=== PATIENT | male | born 1935 | race Caucasian/White ===

== ENCOUNTER 2018-11-15 17:15 | Inpatient (IN) | payer MEDICARE, BC ==
[2018-11-15] MEDS ORDERED: Furosemide 40 MG TAB PO PRN (19:45)
[2018-11-15] MEDS ORDERED: Dextrose 50% Abboject 50 ML SYRINGE SLOW IVP PRN (19:48)
[2018-11-15] MEDS ORDERED: Dextrose 5% in Water 1,000 ML IV PRN (19:48)
[2018-11-15] MEDS: Lantus 1000 UNITS/10 ML VIAL SC SCH (21:05)
[2018-11-15] MEDS: Sucralfate 1 GM TAB PO SCH (21:06)
[2018-11-15] MEDS: Carvedilol 6.25 MG TAB PO SCH (21:06)
[2018-11-15] MEDS ORDERED: Zolpidem Tartrate 5 MG TAB PO SCH (22:45)
[2018-11-15] MEDS: HumaLOG 300 UNITS/3 ML VIAL SC PRN (22:47)
[2018-11-16 05:10] LABS: #Basophils 0.1 thou/uL (0.0-0.2); #Eosinphils 0.4 thou/uL (0.0-0.7); #Lymphocytes 1.4 thou/uL (1.20-3.40); #Monocytes 1.3 thou/uL (0.11-0.59); #Neutrophils 6.6 thou/uL (1.40-6.50); %Basophils 0.7 % (0.0-1.0); %Eosinophils 4.2 % (0.0-10.0); %Lymphocytes 14.5 % (21.0-51.0); %Monocytes 12.9 % (0.0-10.0); %Neutrophils 67.7 % (42.0-75.0); Hemoglobin 10.2 g/dL (14.0-18.0); Mean Corpuscular HGB CONC 30.7 g/dL (32.0-36.0); Mean Corpuscular Volume 84.5 fL (78.0-98.0); Platelet Count 313 thou/uL (130-400); RBC Distribution Width 13.6 % (11.5-14.5); Red Blood Cell (RBC) Count 3.92 mill/uL (4.70-6.10); White Blood Cell (WBC) Count 9.7 thou/uL (4.8-10.8)
[2018-11-16 05:29] LABS: ALT (SGPT) 84 U/L (8-55); AST (SGOT) 50 U/L (5-34); Albumin 3.2 g/dL (3.4-4.8); Alkaline Phosphatase 68 U/L (40-150); Anion Gap 11 mmol/L (10-20); BUN (Urea Nitrogen) 16 mg/dL (8.4-25.7); Bilirubin, Total 1.3 mg/dL (0.2-1.2); Calc. Creatinine Clearance 64 mL/min (70-130); Calcium 9.4 mg/dL (7.8-10.44); Carbon Dioxide 29 mmol/L (23-31); Chloride 92 mmol/L (98-107); Estimated GFR-MDRD 54; Globulin 2.7 g/dL (2.4-3.5); Glucose 154 mg/dL (83-110); Potassium 4.1 mmol/L (3.5-5.1); Protein, Total 5.9 g/dL (5.8-8.1); Sodium 128 mmol/L (136-145)
[2018-11-16] MEDS: Loratadine 10 MG TAB PO SCH (08:57)
[2018-11-16] MEDS: Rivaroxaban 10 MG TAB PO SCH (08:57)
[2018-11-16] MEDS: Polyethylene Glycol 3350 17 GM Packet PO SCH (08:57)
--- NOTE | 2018-11-16 08:57 | RAD ---
FExam: Chest one view HISTORY:CHF, cardiac tamponade not Comparison: 10/08/17 FINDINGS: Lungs: Pleural-based density at each inferior chest, right greater than left Cardiac silhouette:Mildly enlarged Pulmonary vessels: Normal Pleural Spaces: Small bilateral pleural effusions right greater than left Pneumothorax: None Osseous abnormalities: None IMPRESSION: Bilateral pleural effusion, right greater than left, mild in volume. Enlarged cardiac silhouette correlative to to provided history of CHF.
[2018-11-16] MEDS: Fenofibrate Nanocrystallized 145 MG TAB PO SCH (08:58)
[2018-11-16] MEDS: Atorvastatin Calcium 10 MG TAB PO SCH (08:58)
[2018-11-16] MEDS: Tamsulosin HCl 0.4 MG CAP PO SCH (08:58)
[2018-11-16] MEDS: Potassium Chloride 20 MEQ TAB PO SCH (08:58)
[2018-11-16] MEDS: Furosemide 20 MG TAB PO SCH (08:58)
[2018-11-16] MEDS: Carvedilol 6.25 MG TAB PO SCH ×2 (08:59→21:17)
[2018-11-16] MEDS: Sucralfate 1 GM TAB PO SCH ×4 (08:59→21:17)
[2018-11-16] MEDS: Aspirin Chewable 81 MG TAB PO SCH (08:59)
[2018-11-16] MEDS: Alogliptin 25 MG TAB PO SCH (08:59)
[2018-11-16] MEDS: Saccharomyces boulardii 250 MG CAP PO SCH (08:59)
[2018-11-16] MEDS: HumaLOG 300 UNITS/3 ML VIAL SC PRN ×3 (12:20→21:20)
[2018-11-16] MEDS ORDERED: Zolpidem Tartrate 5 MG TAB PO SCH (21:00)
[2018-11-16] MEDS: Zolpidem Tartrate 5 MG TAB PO SCH (21:17)
[2018-11-16] MEDS: Lantus 1000 UNITS/10 ML VIAL SC SCH (21:17)
[2018-11-17] MEDS: HumaLOG 300 UNITS/3 ML VIAL SC PRN ×4 (06:14→20:59)
--- NOTE | 2018-11-17 07:43 | PRG ---
DATE OF SERVICE: 11/16/2018 SUBJECTIVE: The patient has no complaints this morning and is ready to do therapy. He is eating well. No nausea, vomiting, shortness of breath, or chest pain. VITAL SIGNS: Temperature is 98, pulse 84, respirations 18, O2 sats 97% on room air, blood pressure 134/61. LABORATORY: White count 9700, hematocrit 33, hemoglobin 10. Sodium is up to 128 from admission, sodium 125, potassium 4.1, chloride 92, bicarb 29, BUN 16, creatinine 1.27. Accu-Cheks ranged from 253 to 266. Total bilirubin 1.3, AST 50, ALT 84, albumin 3.2, alkaline phosphatase 68, total protein 5.9. PHYSICAL EXAMINATION: LUNGS: Clear. CARDIAC: Regular rhythm. ABDOMEN: Soft and nontender. SKIN AND EXTREMITIES: No edema, clubbing, or cyanosis. ASSESSMENT: 1. Improving deconditioning status post recent admission for a cardiac tamponade, resolved with pericardial window. 2. Atrial fibrillation/flutter, status post ablation with no evidence for recurrence. 3. Diastolic heart failure, slowly improving with increasing exercise tolerance. 4. Type 2 diabetes with inadequate control, at this time on prehospitalization medicines and mild sliding scale. We will discuss increased dose of long-acting insulin with the patient. 5. History of elevated liver function studies, most likely due to congestive heart failure, improving with diuresis. We will continue to monitor. Job ID: [id number]
[2018-11-17] MEDS: Tamsulosin HCl 0.4 MG CAP PO SCH (08:38)
[2018-11-17] MEDS: Rivaroxaban 10 MG TAB PO SCH (08:39)
[2018-11-17] MEDS: Aspirin Chewable 81 MG TAB PO SCH (08:39)
[2018-11-17] MEDS: Potassium Chloride 20 MEQ TAB PO SCH (08:40)
[2018-11-17] MEDS: Sucralfate 1 GM TAB PO SCH ×4 (08:40→20:57)
[2018-11-17] MEDS: Fenofibrate Nanocrystallized 145 MG TAB PO SCH (08:43)
[2018-11-17] MEDS: Carvedilol 6.25 MG TAB PO SCH ×3 (08:43→20:57)
[2018-11-17] MEDS: Loratadine 10 MG TAB PO SCH (08:44)
[2018-11-17] MEDS: Atorvastatin Calcium 10 MG TAB PO SCH (08:44)
[2018-11-17] MEDS: Polyethylene Glycol 3350 17 GM Packet PO SCH (08:44)
[2018-11-17] MEDS: Furosemide 20 MG TAB PO SCH (08:44)
[2018-11-17] MEDS: Alogliptin 25 MG TAB PO SCH (08:44)
[2018-11-17] MEDS: Saccharomyces boulardii 250 MG CAP PO SCH (08:52)
[2018-11-17 12:54] VITALS: BMI 30.7
--- NOTE | 2018-11-17 13:28 | HP ---
CHIEF COMPLAINT: Severe weakness and deconditioning, status post recent episode of cardiac tamponade. 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 Subsequent evaluation showed him to have a pericardial effusion with tamponade parameters. It was felt this was due to most likely bleeding secondary to anticoagulation and converting from postoperative pericarditis. He underwent pericardial window and slowly, but surely began to have improvement in his exacerbation of his chronic diastolic heart failure with gentle diuresis, has type 2 diabetes, remain well controlled on his prehospitalization medications of Tresiba 25 units at bedtime. He remained, however, severely weakened and unable to maintain ADLs, and therefore was transferred to [facility], [place] for physical therapy and occupational therapy. At this time, he is in no distress at rest, but is very weak and unable to do ADLs. He denies any chest pain or shortness of breath at rest, but does have some dyspnea on mild exertion, which is improving. He denies palpitation. He denies localized numbness, weakness in arms or extremities. His diabetes, as mentioned above, has been well controlled at home and in the hospital. He also takes Januvia 100 mg daily for this. He has continued on his Xarelto 15 mg daily for post ablation anticoagulation. He also is continued on his carvedilol 6.25 twice daily, aspirin 81 daily, atorvastatin 10 mg daily as furosemide dose is ranged from 20 mg daily to 40 mg daily depending on his weight. He has been on stress ulcer prophylaxis with Protonix 40 daily and Carafate 1 g q.i.d. He has also been on Flomax 0.4 mg daily for lower tract obstructive symptoms from his benign prostatic hypertrophy with good control. Finally, he takes potassium 20 mEq daily when he takes Lasix and takes Florastor 250 mg daily probiotic. He is a full code. ALLERGIES: HE HAS NO KNOWN ALLERGIES. 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 PAST SURGICAL HISTORY: Positive for the above-mentioned lobectomy, left total knee replacement, cholecystectomy, appendectomy, bilateral cataract surgery and lens implants. FAMILY MEDICAL HISTORY: Positive for brother with coronary artery disease. Mother with cancer. SOCIAL HISTORY: He is a nonsmoker, nondrinker, nondrug user. He lives alone. He has above-mentioned full code. REVIEW OF SYSTEMS: HEENT: He denies any headaches, dizziness, change in vision or hearing, hoarseness, or dysphagia. PULMONARY: He denies cough, sputum production, pneumonia, asthma, or tuberculosis. CARDIOVASCULAR: See history of present illness. He has no history of chest pain, orthopnea, paroxysmal nocturnal dyspnea, or edema. GASTROINTESTINAL: He has above-mentioned history of bloating, abdominal discomfort, which is improved after the pericardial window. He has no change in his bowel movements. GENITOURINARY: He has no dysuria, hematuria, or nocturia on tamsulosin. MUSCULOSKELETAL: He has a history of bilateral edema and some tenderness in his knees. NEUROLOGIC: He denies localized numbness or weakness in arms or extremities. PHYSICAL EXAMINATION: GENERAL: The patient is an elderly white male, sitting up in chair, appears alert and oriented, in no distress. VITAL SIGNS: Show him to have blood pressure of 117/56, temperature is 98, pulse 85, respirations 20, O2 saturations 96% on room air. LUNGS: Clear. CARDIAC: Showed regular rhythm. S4. No other gallops or murmurs. ABDOMEN: Soft, nontender with no masses or organomegaly. SKIN AND EXTREMITIES: Play 2+ edema. No clubbing or cyanosis. NEUROLOGIC: Cranial nerves intact. Deep tendon reflex 2+ and equal. There are absent Babinski. LABORATORY DATA: Show white count 10,600, hematocrit 33, hemoglobin 10. Sodium is 125, potassium 4.2, chloride 88, bicarb 32, BUN 18, creatinine 1.55, glucose is 294, calcium 9.0. ASSESSMENT: The patient is an 83-year-old white male with a history of type 2 diabetes, hypertension, atrial fibrillation, flutter, status post ablation with subsequent postoperative complication of hemorrhagic pericarditis, pericardial effusion, and subsequent tamponade requiring pericardial window. He has recovered, but is severely weak at this time and is admitted to [facility] [place] for PT and OT. He is denying any symptoms of congestive heart failure, shortness of breath, although he does have some dyspnea on exertion and weakness. He will be restarted back on his prehospitalization medications and monitor closely with PT and OT assessment. 1. Cardiac tamponade, status post pericardial effusion from hemorrhagic pericarditis, improved, status post cardiac window. 2. Atrial fibrillation, flutter, resolved with ablation. 3. Type 2 diabetes with inadequate control on home medications and we will monitor with sliding scale and may adjust. 4. Diastolic heart failure, improving slightly with 20 to 40 mg of Lasix daily. 5. Benign prostatic hypertrophy, stable. 6. Pancreatic mass, asymptomatic, being followed. 7. History of cancer of lung, status post lobectomy. PLAN: 1. Continue PT and OT. Continue Accu-Cheks. Monitor and titrate and control diabetes. Continue prehospitalization medications and may need to adjust diuretics as needed. 2. Monitor for recurrent atrial fibrillation, his shortness of breath, exacerbation of heart failure with therapy. Job ID: [id number]
[2018-11-17] MEDS: Zolpidem Tartrate 5 MG TAB PO SCH (20:57)
[2018-11-17] MEDS: Lantus 1000 UNITS/10 ML VIAL SC SCH (21:29)
[2018-11-18] MEDS: HumaLOG 300 UNITS/3 ML VIAL SC PRN ×4 (06:21→20:34)
[2018-11-18] MEDS: Sucralfate 1 GM TAB PO SCH ×4 (09:06→20:29)
[2018-11-18] MEDS: Polyethylene Glycol 3350 17 GM Packet PO SCH (09:06)
[2018-11-18] MEDS: Rivaroxaban 10 MG TAB PO SCH (09:07)
[2018-11-18] MEDS: Tamsulosin HCl 0.4 MG CAP PO SCH (09:07)
[2018-11-18] MEDS: Potassium Chloride 20 MEQ TAB PO SCH (09:07)
[2018-11-18] MEDS: Atorvastatin Calcium 10 MG TAB PO SCH (09:08)
[2018-11-18] MEDS: Loratadine 10 MG TAB PO SCH (09:08)
[2018-11-18] MEDS: Fenofibrate Nanocrystallized 145 MG TAB PO SCH (09:08)
[2018-11-18] MEDS: Carvedilol 6.25 MG TAB PO SCH ×2 (09:08→20:29)
[2018-11-18] MEDS: Aspirin Chewable 81 MG TAB PO SCH (09:08)
[2018-11-18] MEDS: Furosemide 20 MG TAB PO SCH (09:08)
[2018-11-18] MEDS: Alogliptin 25 MG TAB PO SCH (09:09)
[2018-11-18] MEDS: Saccharomyces boulardii 250 MG CAP PO SCH (09:09)
--- NOTE | 2018-11-18 18:08 | PRG ---
DATE OF SERVICE: 11/17/2018 SUBJECTIVE: The patient is sitting up in the room, visiting with friends, with no complaints. He states he has been working well with therapy, having increasing strength and decreasing dyspnea. OBJECTIVE: VITAL SIGNS: Blood pressure of 120/59, temperature 97.8, pulse 81, respirations 20, and O2 saturations 97% on room air. LUNGS: Clear. CARDIAC: Regular rhythm. ABDOMEN: Soft and nontender. SKIN AND EXTREMITIES: Displayed no edema, clubbing, cyanosis. NEUROLOGIC: Intact. LABORATORY DATA: Accu-Cheks ranged 254 to 266. ASSESSMENT: 1. Resolving pericardial effusion, status post ablation of atrial fibrillation with tamponade physiology, resolved with window. 2. Resolved atrial fibrillation, apparently still in sinus rhythm after ablation. 3. Chronic hyponatremia, slightly improved. 4. Type 2 diabetes, not controlled goal. 5. Elevated liver function studies, improving. PLAN: 1. Increase Lantus to 30 units nightly and continue to monitor closely. 2. Continue PT/OT. 3. Continue to monitor for fluid retention. 4. Continue diuresis and repeat liver functions and renal functions in 2 days. Job ID: [id number]
[2018-11-18] MEDS: Zolpidem Tartrate 5 MG TAB PO SCH (20:30)
[2018-11-18] MEDS: Lantus 1000 UNITS/10 ML VIAL SC SCH (20:37)
[2018-11-19] MEDS: HumaLOG 300 UNITS/3 ML VIAL SC PRN ×4 (05:42→20:49)
[2018-11-19 05:46] LABS: #Basophils 0.2 thou/uL (0.0-0.2); #Eosinphils 0.3 thou/uL (0.0-0.7); #Lymphocytes 1.2 thou/uL (1.20-3.40); #Neutrophils 4.6 thou/uL (1.40-6.50); %Basophils 2.6 % (0.0-1.0); %Eosinophils 3.7 % (0.0-10.0); %Lymphocytes 16.2 % (21.0-51.0); %Monocytes 13.4 % (0.0-10.0); %Neutrophils 64.1 % (42.0-75.0); Hemoglobin 10.1 g/dL (14.0-18.0); Mean Corpuscular HGB CONC 31.1 g/dL (32.0-36.0); Mean Corpuscular Hemoglobin 26.2 pg (27.0-31.0); Mean Corpuscular Volume 84.2 fL (78.0-98.0); Mean Platelet Volume 8.1 fL (7.4-10.4); Platelet Count 290 thou/uL (130-400); RBC Distribution Width 13.9 % (11.5-14.5); Red Blood Cell (RBC) Count 3.88 mill/uL (4.70-6.10); White Blood Cell (WBC) Count 7.2 thou/uL (4.8-10.8)
[2018-11-19 05:56] LABS: ALT (SGPT) 47 U/L (8-55); AST (SGOT) 33 U/L (5-34); Albumin 3.5 g/dL (3.4-4.8); Alkaline Phosphatase 72 U/L (40-150); Anion Gap 13 mmol/L (10-20); BUN (Urea Nitrogen) 22 mg/dL (8.4-25.7); Bilirubin, Total 1.1 mg/dL (0.2-1.2); Calc. Creatinine Clearance 61 mL/min (70-130); Calcium 9.8 mg/dL (7.8-10.44); Carbon Dioxide 22 mmol/L (23-31); Chloride 97 mmol/L (98-107); Estimated GFR-MDRD 51; Globulin 2.8 g/dL (2.4-3.5); Glucose 180 mg/dL (83-110); Potassium 4.4 mmol/L (3.5-5.1); Protein, Total 6.3 g/dL (5.8-8.1); Sodium 128 mmol/L (136-145)
[2018-11-19] MEDS: Polyethylene Glycol 3350 17 GM Packet PO SCH (08:35)
[2018-11-19] MEDS: Alogliptin 25 MG TAB PO SCH (08:36)
[2018-11-19] MEDS: Tamsulosin HCl 0.4 MG CAP PO SCH (08:36)
[2018-11-19] MEDS: Apixaban 2.5 MG TAB PO SCH ×2 (08:36→20:48)
[2018-11-19] MEDS: Furosemide 20 MG TAB PO SCH (08:36)
[2018-11-19] MEDS: Potassium Chloride 20 MEQ TAB PO SCH (08:36)
[2018-11-19] MEDS: Fenofibrate Nanocrystallized 145 MG TAB PO SCH (08:36)
[2018-11-19] MEDS: Carvedilol 6.25 MG TAB PO SCH ×2 (08:36→20:47)
[2018-11-19] MEDS: Atorvastatin Calcium 10 MG TAB PO SCH (08:36)
[2018-11-19] MEDS: Aspirin Chewable 81 MG TAB PO SCH (08:36)
[2018-11-19] MEDS: Loratadine 10 MG TAB PO SCH (08:36)
[2018-11-19] MEDS: Sucralfate 1 GM TAB PO SCH ×4 (08:36→20:47)
[2018-11-19] MEDS: Saccharomyces boulardii 250 MG CAP PO SCH (08:36)
[2018-11-19] MEDS: Zolpidem Tartrate 5 MG TAB PO PRN (20:48)
[2018-11-19] MEDS: Lantus 1000 UNITS/10 ML VIAL SC SCH (20:51)
[2018-11-20] MEDS: HumaLOG 300 UNITS/3 ML VIAL SC PRN ×4 (05:49→21:03)
[2018-11-20] MEDS: Polyethylene Glycol 3350 17 GM Packet PO SCH (09:11)
[2018-11-20] MEDS: Tamsulosin HCl 0.4 MG CAP PO SCH (09:11)
[2018-11-20] MEDS: Apixaban 2.5 MG TAB PO SCH ×2 (09:11→21:01)
[2018-11-20] MEDS: Carvedilol 6.25 MG TAB PO SCH ×2 (09:11→21:01)
[2018-11-20] MEDS: Alogliptin 25 MG TAB PO SCH (09:11)
[2018-11-20] MEDS: Potassium Chloride 20 MEQ TAB PO SCH (09:12)
[2018-11-20] MEDS: Furosemide 20 MG TAB PO SCH (09:12)
[2018-11-20] MEDS: Sucralfate 1 GM TAB PO SCH ×4 (09:12→21:01)
[2018-11-20] MEDS: Loratadine 10 MG TAB PO SCH (09:12)
[2018-11-20] MEDS: Atorvastatin Calcium 10 MG TAB PO SCH (09:12)
[2018-11-20] MEDS: Aspirin Chewable 81 MG TAB PO SCH (09:12)
[2018-11-20] MEDS: Saccharomyces boulardii 250 MG CAP PO SCH (09:12)
[2018-11-20] MEDS: Fenofibrate Nanocrystallized 145 MG TAB PO SCH (09:12)
--- NOTE | 2018-11-20 16:55 | PRG ---
DATE OF SERVICE: 11/20/2018 SUBJECTIVE: Mr. Melara is doing well. Denies any complaints. Resting comfortably. His blood sugars have been running a little high, and the plan is to increase his Lantus. He states that the increase in the Ambien really helped with his sleep. No family at bedside. Discussed with nursing. He denies any chest pain or shortness of breath. OBJECTIVE: VITAL SIGNS: He is afebrile. Heart rate is 79, respirations 18, oxygen saturation 96% on room air, blood pressure 115/64. CARDIOVASCULAR: S1 and S2 plus. RESPIRATORY: Normal vesicular breath sounds. ABDOMEN: Soft. Nontender. Bowel sounds heard in all quadrants. EXTREMITIES: Without cyanosis or clubbing. 1+ to trace pedal edema, mainly in the right leg. CENTRAL NERVOUS SYSTEM: AAO x3. Cranial nerves 2 through 12 intact. Generalized weakness. LABORATORY DATA: Blood sugars are 281, 272, 294, 184, and 188. IMPRESSION: 1. Diabetes mellitus type 2. 2. Recent episode of hemorrhagic pericarditis requiring pericardial window. 3. Atrial fibrillation requiring ablation. 4. Benign prostatic hypertrophy. 5. Dyslipidemia. 6. Chronic diastolic congestive heart failure. 7. Pancreatic mass, asymptomatic. 8. History of cancer of the lung, status post lobectomy. PLAN: 1. Increase Lantus to 35 units subcu daily. 2. Continue Ambien 10 mg at bedtime p.r.n. 3. 1800-calorie heart healthy ADA diet. 4. Accu-Cheks with sliding scale coverage. 5. Monitor blood pressure and adjust medications as needed. 6. Monitor for any decompensation of heart failure. 7. DVT and stress ulcer prophylaxis. He is on Xarelto. 8. Decubitus precautions. 9. Physical therapy. 10. Routine laboratory values. 11. Discussed with the patient and nursing in detail. All questions answered. Job ID: [id number]
[2018-11-20] MEDS: Zolpidem Tartrate 5 MG TAB PO PRN (21:01)
[2018-11-20] MEDS: Lantus 1000 UNITS/10 ML VIAL SC SCH (21:02)
[2018-11-21 05:25] LABS: #Basophils 0.1 thou/uL (0.0-0.2); #Eosinphils 0.3 thou/uL (0.0-0.7); #Lymphocytes 1.5 thou/uL (1.20-3.40); #Monocytes 0.9 thou/uL (0.11-0.59); #Neutrophils 4.4 thou/uL (1.40-6.50); %Basophils 1.4 % (0.0-1.0); %Eosinophils 3.8 % (0.0-10.0); %Lymphocytes 20.9 % (21.0-51.0); %Neutrophils 60.9 % (42.0-75.0); Hemoglobin 10.1 g/dL (14.0-18.0); Mean Corpuscular HGB CONC 30.6 g/dL (32.0-36.0); Mean Corpuscular Hemoglobin 25.8 pg (27.0-31.0); Mean Corpuscular Volume 84.1 fL (78.0-98.0); Mean Platelet Volume 8.4 fL (7.4-10.4); Platelet Count 245 thou/uL (130-400); RBC Distribution Width 13.9 % (11.5-14.5); Red Blood Cell (RBC) Count 3.91 mill/uL (4.70-6.10); White Blood Cell (WBC) Count 7.2 thou/uL (4.8-10.8)
[2018-11-21 05:36] LABS: Anion Gap 13 mmol/L (10-20); BUN (Urea Nitrogen) 20 mg/dL (8.4-25.7); Calc. Creatinine Clearance 58 mL/min (70-130); Calcium 9.7 mg/dL (7.8-10.44); Carbon Dioxide 22 mmol/L (23-31); Chloride 98 mmol/L (98-107); Estimated GFR-MDRD 48; Glucose 194 mg/dL (83-110); Potassium 4.2 mmol/L (3.5-5.1); Sodium 129 mmol/L (136-145)
[2018-11-21] MEDS: HumaLOG 300 UNITS/3 ML VIAL SC PRN ×4 (05:56→20:40)
[2018-11-21] MEDS: Atorvastatin Calcium 10 MG TAB PO SCH (09:23)
[2018-11-21] MEDS: Apixaban 2.5 MG TAB PO SCH ×2 (09:23→20:35)
[2018-11-21] MEDS: Fenofibrate Nanocrystallized 145 MG TAB PO SCH (09:23)
[2018-11-21] MEDS: Polyethylene Glycol 3350 17 GM Packet PO SCH (09:23)
[2018-11-21] MEDS: Loratadine 10 MG TAB PO SCH (09:24)
[2018-11-21] MEDS: Tamsulosin HCl 0.4 MG CAP PO SCH (09:24)
[2018-11-21] MEDS: Potassium Chloride 20 MEQ TAB PO SCH (09:24)
[2018-11-21] MEDS: Furosemide 20 MG TAB PO SCH (09:24)
[2018-11-21] MEDS: Aspirin Chewable 81 MG TAB PO SCH (09:24)
[2018-11-21] MEDS: Carvedilol 6.25 MG TAB PO SCH ×2 (09:24→20:35)
[2018-11-21] MEDS: Alogliptin 25 MG TAB PO SCH (09:24)
[2018-11-21] MEDS: Sucralfate 1 GM TAB PO SCH ×4 (09:24→20:35)
[2018-11-21] MEDS: Saccharomyces boulardii 250 MG CAP PO SCH (09:25)
--- NOTE | 2018-11-21 16:13 | PRG ---
DATE OF SERVICE: 11/21/2018 SUBJECTIVE: Mr. Melara is doing well. Denies any complaints. Resting comfortably. Blood sugars are better with increase in Lantus. No family at bedside. He just had a shower. OBJECTIVE: VITAL SIGNS: He is afebrile, heart rate is 84, respirations 18, oxygen saturation 96% on room air, and blood pressure 109/77. CARDIOVASCULAR SYSTEM: S1 and S2 plus. RESPIRATORY SYSTEM: Normal vesicular breath sounds. ABDOMEN: Soft, nontender. Bowel sounds in all quadrants. EXTREMITIES: Without cyanosis or clubbing. Peripheral pulses are palpable. LABORATORY DATA: Blood sugars are 188, 223, and 333 that was yesterday last night as well and this morning was 194 and 196. IMPRESSION: 1. Recent episode of hemorrhagic pericarditis, requiring pericardial window. 2. Diabetes mellitus, type 2. 3. Atrial fibrillation, requiring ablation. 4. Benign prostatic hypertrophy. 5. Dyslipidemia. 6. Chronic diastolic congestive heart failure. 7. Pancreatic mass, asymptomatic. 8. Improving deconditioning. PLAN: 1. Continue current medications including the Lantus at 35 units. 2. 1800-calorie heart healthy ADA diet. 3. Accu-Cheks with sliding scale coverage. 4. Monitor blood pressure and adjust medications as needed. 5. Monitor heart rate and rhythm. 6. Physical therapy. 7. DVT and stress ulcer prophylaxis. He is on Xarelto. 8. Decubitus precautions. 9. Routine laboratory values. Job ID: [id number]
[2018-11-21] MEDS: Zolpidem Tartrate 5 MG TAB PO PRN (20:34)
[2018-11-21] MEDS: Lantus 1000 UNITS/10 ML VIAL SC SCH (20:41)
[2018-11-22] MEDS: Fenofibrate Nanocrystallized 145 MG TAB PO SCH (09:08)
[2018-11-22] MEDS: Alogliptin 25 MG TAB PO SCH (09:08)
[2018-11-22] MEDS: Atorvastatin Calcium 10 MG TAB PO SCH (09:09)
[2018-11-22] MEDS: Potassium Chloride 20 MEQ TAB PO SCH (09:10)
[2018-11-22] MEDS: Sucralfate 1 GM TAB PO SCH ×4 (09:11→20:28)
[2018-11-22] MEDS: Tamsulosin HCl 0.4 MG CAP PO SCH (09:11)
[2018-11-22] MEDS: Furosemide 20 MG TAB PO SCH (09:11)
[2018-11-22] MEDS: Carvedilol 6.25 MG TAB PO SCH ×2 (09:12→20:28)
[2018-11-22] MEDS: Saccharomyces boulardii 250 MG CAP PO SCH (09:13)
[2018-11-22] MEDS: Aspirin Chewable 81 MG TAB PO SCH (09:14)
[2018-11-22] MEDS: Loratadine 10 MG TAB PO SCH (09:14)
[2018-11-22] MEDS: Apixaban 2.5 MG TAB PO SCH ×2 (09:15→20:28)
[2018-11-22] MEDS: Polyethylene Glycol 3350 17 GM Packet PO SCH (09:16)
[2018-11-22] MEDS: HumaLOG 300 UNITS/3 ML VIAL SC PRN ×3 (12:28→20:28)
[2018-11-22] MEDS: Zolpidem Tartrate 5 MG TAB PO PRN (20:28)
[2018-11-22] MEDS: Lantus 1000 UNITS/10 ML VIAL SC SCH (20:29)
[2018-11-22] MEDS: Benzonatate 100 MG CAP PO PRN (20:53)
--- NOTE | 2018-11-23 05:34 | PRG ---
DATE OF SERVICE: 11/19/2018 SUBJECTIVE: The patient is an 83-year-old white male, admitted to [facility] for deconditioning, status post recent episode of pericardial effusion and tamponade requiring pericardial window. He is doing very well with increasing strength, cooperating well with therapy. He has comorbidities of type 2 insulin-dependent diabetes with only fair control with no symptoms of dizziness, chest pain, shortness of breath, palpitations, or paresthesias. OBJECTIVE: VITAL SIGNS: Show blood pressure is 120/56, pulse 81, temperature 97.8, respirations 20, O2 sats 97% on room air. LUNGS: Clear. CARDIAC: Displays regular rhythm. ABDOMEN: Soft and nontender. SKIN/EXTREMITIES: Displays trace edema. No clubbing, cyanosis. NEUROLOGICAL: Intact. LABORATORY DATA: Shows white count 7200, hematocrit 32, hemoglobin 10. Sodium is 128, potassium 4.4, chloride 97, bicarb 22, BUN 22, creatinine 1.34. Accu-Cheks range from 180 to 294. ASSESSMENT: 1. Improving deconditioning, cooperating well with therapy. 2. Stable conversion of atrial fib/flutter, status post ablation with no evidence for recurrence. 3. Resolved pericardial effusion and tamponade, status post pericardial window. 4. Type 2 diabetes with inadequate control. We will increase insulin to 35 units of Levemir. Continue to monitor closely. 5. History of elevated liver function studies, resolved, most likely due to recent congestive heart failure, improving with diuresis. PLAN: 1. Increase Levemir to 30 units daily. Continue PT/OT. 2. Continue diuresis and monitor renal function. 3. Continue to monitor for recurrent atrial fibrillation. Job ID: [id number]
--- NOTE | 2018-11-23 05:44 | PRG ---
DATE OF SERVICE: 11/22/2018 SUBJECTIVE: The patient feels well, sitting in bed, awaiting breakfast. Slept well through the night with no shortness of breath. Still having good bowel movements and is ready to cooperate further with therapy. OBJECTIVE: VITAL SIGNS: Show blood pressure is stable at 135/61, temperature is 98, pulse 85, respirations 20, O2 sats 97% on room air. LUNGS: Clear. CARDIAC: Showed regular rhythm. ABDOMEN: Soft and nontender. SKIN/EXTREMITIES: Shows no edema, clubbing, or cyanosis. NEUROLOGICAL: Intact. LABORATORY DATA: Most recent laboratories yesterday showed a sodium stable at 129, potassium 4.2, chloride 98, bicarb 22, BUN 20, creatinine 1.4. Accu-Cheks initially improved to less than 200, 184 to 188 with an increase yesterday to greater than 200 again in the afternoon. The patient is walking well with therapy, but did not cooperate with therapy yesterday secondary to weekend. He is modified independent on transfers, walking 600 feet. ASSESSMENT: 1. Deconditioning improving greatly and we will leave up to physical therapy when able to discharge home. 2. Uncontrolled diabetes, on increased dose of Levemir and we will increase again to 40 units subcu at bedtime. 3. Diastolic heart failure appears to be improved on Lasix 20 mg daily. 4. Chronic kidney disease stage 3, stable on 20 mg daily, and we will continue. PLAN: 1. Increase Levemir 40 units nightly. 2. Continue PT/OT and discuss discharge planning with PT/OT. 3. Diastolic heart failure, compensated. 4. Chronic kidney disease stage 3, stable. 5. Paroxysmal atrial fibrillation. No evidence for recurrence status post ablation. 6. Pericardial tamponade secondary to hemorrhagic pericardial effusion, status post ablation, resolved . 7. Continue Accu-Cheks, to monitor diabetic control. Discuss discharge planning with PT/OT. Continue to monitor renal function. Job ID: [id number]
[2018-11-23] MEDS: Aspirin Chewable 81 MG TAB PO SCH (08:48)
[2018-11-23] MEDS: Alogliptin 25 MG TAB PO SCH (08:48)
[2018-11-23] MEDS: Tamsulosin HCl 0.4 MG CAP PO SCH (08:48)
[2018-11-23] MEDS: Fenofibrate Nanocrystallized 145 MG TAB PO SCH (08:48)
[2018-11-23] MEDS: Apixaban 2.5 MG TAB PO SCH ×2 (08:48→21:05)
[2018-11-23] MEDS: Sucralfate 1 GM TAB PO SCH ×4 (08:48→21:05)
[2018-11-23] MEDS: Potassium Chloride 20 MEQ TAB PO SCH (08:48)
[2018-11-23] MEDS: Loratadine 10 MG TAB PO SCH (08:48)
[2018-11-23] MEDS: Polyethylene Glycol 3350 17 GM Packet PO SCH (08:48)
[2018-11-23] MEDS: Atorvastatin Calcium 10 MG TAB PO SCH (08:49)
[2018-11-23] MEDS: Carvedilol 6.25 MG TAB PO SCH ×2 (08:49→21:05)
[2018-11-23] MEDS: Furosemide 20 MG TAB PO SCH (08:49)
[2018-11-23] MEDS: Saccharomyces boulardii 250 MG CAP PO SCH (08:50)
[2018-11-23] MEDS: HumaLOG 300 UNITS/3 ML VIAL SC PRN ×2 (11:59→16:50)
[2018-11-23] MEDS ORDERED: Dextrose 50% Abboject 50 ML SYRINGE SLOW IVP PRN (13:01)
[2018-11-23] MEDS ORDERED: Dextrose 5% in Water 1,000 ML IV PRN (13:01)
[2018-11-23] MEDS ORDERED: Lantus 1000 UNITS/10 ML VIAL SC SCH (21:00)
[2018-11-23] MEDS: Benzonatate 100 MG CAP PO PRN (21:04)
[2018-11-23] MEDS: Zolpidem Tartrate 5 MG TAB PO PRN (21:04)
--- NOTE | 2018-11-23 23:26 | PRG ---
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 The patient was transferred to inpatient swing bed for physical therapy and occupational therapy. The patient states he is doing well and has really no complaints and feeling pretty well today. He has been walking and physical therapy is working him pretty hard. OBJECTIVE: VITAL SIGNS: Reveal blood pressure this morning 131/60, pulse 89 to 85, respirations 20, O2 saturation 97% on room air, and T-max 97.1. 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 HEENT: Normocephalic and nontraumatic cranium. Pupils are equal, round, and reactive. Extraocular movements are intact. Nose and throat are slightly dry. NECK: Supple without masses, nodes, or bruits. CHEST: Clear to auscultation. No rales, no rhonchi, no wheezes, no cough is noted. HEART: Reveals a regular rate and rhythm without murmurs, gallops, or rubs. ABDOMEN: Soft and nontender without organomegaly. No rebound or guarding is noted. : Deferred. EXTREMITIES: Reveal no clubbing or cyanosis with 2+ edema. NEUROLOGIC: The patient is oriented to person, place, and time. ASSESSMENT: 1. Type 2 diabetes. 2. Hypertension. 3. Atrial fibrillation/flutter. 4. Status post ablation with complication of hemorrhagic pericarditis. 5. Pericardial effusion with tamponade requiring pericardial window. 6. Generalized weakness. 7. Diastolic congestive heart failure. 8. Benign prostatic hyperplasia. 9. Pancreatic mass, asymptomatic. 10. History of lung cancer, status post lobectomy. PLAN: 1. Continue physical therapy and occupational therapy. 2. Continue to monitor the patient's diabetes with Accu-Cheks before meals and at bedtime. 3. Adjust insulin as needed. 4. Monitor the patient's heart rate for atrial fibrillation and rapid ventricular response. 5. Monitor the patient's respiratory status. 6. Continue physical therapy and occupational therapy. Job ID: [id number]
[2018-11-24 05:31] LABS: ALT (SGPT) 21 U/L (8-55); AST (SGOT) 25 U/L (5-34); Albumin 3.4 g/dL (3.4-4.8); Alkaline Phosphatase 52 U/L (40-150); Anion Gap 13 mmol/L (10-20); BUN (Urea Nitrogen) 21 mg/dL (8.4-25.7); Bilirubin, Total 0.9 mg/dL (0.2-1.2); Calc. Creatinine Clearance 56 mL/min (70-130); Calcium 9.4 mg/dL (7.8-10.44); Carbon Dioxide 21 mmol/L (23-31); Chloride 99 mmol/L (98-107); Estimated GFR-MDRD 46; Globulin 2.8 g/dL (2.4-3.5); Glucose 167 mg/dL (83-110); Potassium 4.2 mmol/L (3.5-5.1); Protein, Total 6.2 g/dL (5.8-8.1); Sodium 129 mmol/L (136-145)
[2018-11-24 05:33] LABS: Band 8 % (5-11); Eosinophils 4 % (0-10); Hemoglobin 9.9 g/dL (14.0-18.0); Hypochromia SLIGHT = 6-15 cells (100X) (0-5/hpf); Lymphocytes 29 % (21-51); MDiff Complete? YES; Mean Corpuscular HGB CONC 30.6 g/dL (32.0-36.0); Mean Corpuscular Volume 84.8 fL (78.0-98.0); Mean Platelet Volume 8.6 fL (7.4-10.4); Metamyelocyte 2 % (0-0); Monocytes 1 % (0-10); Neutrophil 56 % (42-75); Platelet Count 203 thou/uL (130-400); Platelet Morphology Comment Appears Adequate; RBC Distribution Width 13.6 % (11.5-14.5); Red Blood Cell (RBC) Count 3.82 mill/uL (4.70-6.10); White Blood Cell (WBC) Count 6.2 thou/uL (4.8-10.8)
[2018-11-24] MEDS: HumaLOG 300 UNITS/3 ML VIAL SC PRN ×4 (06:00→21:19)
[2018-11-24] MEDS: Polyethylene Glycol 3350 17 GM Packet PO SCH (09:24)
[2018-11-24] MEDS: Fenofibrate Nanocrystallized 145 MG TAB PO SCH (09:24)
[2018-11-24] MEDS: Alogliptin 25 MG TAB PO SCH (09:25)
[2018-11-24] MEDS: Sucralfate 1 GM TAB PO SCH ×4 (09:25→21:20)
[2018-11-24] MEDS: Apixaban 2.5 MG TAB PO SCH ×2 (09:25→21:20)
[2018-11-24] MEDS: Aspirin Chewable 81 MG TAB PO SCH (09:25)
[2018-11-24] MEDS: Carvedilol 6.25 MG TAB PO SCH ×2 (09:25→21:20)
[2018-11-24] MEDS: Atorvastatin Calcium 10 MG TAB PO SCH (09:25)
[2018-11-24] MEDS: Saccharomyces boulardii 250 MG CAP PO SCH (09:25)
[2018-11-24] MEDS: Furosemide 20 MG TAB PO SCH (09:25)
[2018-11-24] MEDS: Loratadine 10 MG TAB PO SCH (09:25)
[2018-11-24] MEDS: Tamsulosin HCl 0.4 MG CAP PO SCH (09:25)
[2018-11-24] MEDS: Potassium Chloride 20 MEQ TAB PO SCH (09:25)
--- NOTE | 2018-11-24 19:48 | PRG ---
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 The patient was at the [facility], was transferred down here for Physical therapy and Occupational therapy. The patient states he is doing much better, but he is still somewhat weakened and a little bit unsteady on his feet, but he is walking long distances. There was a meeting today, where Physical Therapy and Occupational Therapy felt that he would continue to benefit with another week or so of physical therapy and occupational therapy. OBJECTIVE: VITAL SIGNS: Today reveal blood pressure this morning 118/58, pulse 86 to 92, respirations 20, O2 saturation of 97% on room air, T-max 98.2. 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 HEENT: Reveals normocephalic and nontraumatic cranium. Pupils are equal, round, and reactive. Extraocular movements are intact. Nose and throat are moist. NECK: Supple without masses, nodes, or bruits. CHEST: Clear to auscultation. No rales, rhonchi, wheezes, or cough is noted. HEART: Reveals a regular rate and rhythm without murmurs, gallops, or rubs. ABDOMEN: Soft, nontender without organomegaly. Normal bowel sounds are noted in all 4 quadrants. No rebound or guarding is noted. : Deferred. EXTREMITIES: Revealed no clubbing or cyanosis with 1+ edema. NEUROLOGIC: The patient is oriented x4. ASSESSMENT: 1. Diabetes type 2. 2. Hypertension. 3. Atrial fibrillation flutter. 4. Status post ablation with complication of hemorrhagic pericarditis. 5. Pericardial effusion with tamponade requiring a pericardial window. 6. Generalized weakness. 7. Diastolic congestive heart failure. 8. Benign prostatic hyperplasia. 9. Pancreatic mass, asymptomatic. 10. History of lung cancer, status post lobectomy. PLAN: 1. Continue physical therapy and occupational therapy. 2. Continue to monitor the patient's diabetes with Accu-Cheks before meals and at bedtime. 3. Continue to adjust insulin as needed. 4. Monitor the patient's heart rate for atrial fibrillation and flutter with RVR. 5. Monitor the patient's respiratory status. 6. Continue to monitor the patient's weight. Job ID: [id number]
[2018-11-24] MEDS: Lantus 1000 UNITS/10 ML VIAL SC SCH (21:19)
[2018-11-24] MEDS: Zolpidem Tartrate 5 MG TAB PO PRN (21:20)
[2018-11-24] MEDS: Benzonatate 100 MG CAP PO PRN (21:24)
[2018-11-25] MEDS: Potassium Chloride 20 MEQ TAB PO SCH (09:22)
[2018-11-25] MEDS: Alogliptin 25 MG TAB PO SCH (09:22)
[2018-11-25] MEDS: Tamsulosin HCl 0.4 MG CAP PO SCH (09:22)
[2018-11-25] MEDS: Polyethylene Glycol 3350 17 GM Packet PO SCH (09:22)
[2018-11-25] MEDS: Fenofibrate Nanocrystallized 145 MG TAB PO SCH (09:22)
[2018-11-25] MEDS: Carvedilol 6.25 MG TAB PO SCH ×2 (09:23→20:43)
[2018-11-25] MEDS: Loratadine 10 MG TAB PO SCH (09:23)
[2018-11-25] MEDS: Sucralfate 1 GM TAB PO SCH ×4 (09:23→20:43)
[2018-11-25] MEDS: Apixaban 2.5 MG TAB PO SCH ×2 (09:23→20:43)
[2018-11-25] MEDS: Atorvastatin Calcium 10 MG TAB PO SCH (09:23)
[2018-11-25] MEDS: Aspirin Chewable 81 MG TAB PO SCH (09:23)
[2018-11-25] MEDS: Furosemide 20 MG TAB PO SCH (09:23)
[2018-11-25] MEDS: Saccharomyces boulardii 250 MG CAP PO SCH (09:23)
[2018-11-25] MEDS: HumaLOG 300 UNITS/3 ML VIAL SC PRN (11:56)
--- NOTE | 2018-11-25 19:23 | PRG ---
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 He has had multiple medical problems including atrial fibrillation/flutter; pericardial effusion with tamponade with cardiac window; diabetes type 2; hypertension; hyponatremia with SIADH; history of lung cancer; pancreatic mass, which is being followed closely; hyperlipidemia; generalized weakness. The patient was admitted to [facility], eventually stabilized, and transferred to physical therapy and occupational therapy at [facility]. The patient states he is doing much better and is slowly getting stronger. He is walking much better, but his balance is still questionable at times. He is unable to completely care for himself at this time. He was seen today at physical therapy, standing on a sponge, working on balance techniques for his balance. PHYSICAL EXAMINATION: VITAL SIGNS: Today reveal blood pressure this morning was 107/58, pulse 96, respirations 18, O2 saturation 96% on room air, and T-max 98. 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 HEENT: Normocephalic and nontraumatic cranium. Pupils are equal, round, and reactive. Extraocular movements are intact. Nose and throat are still moist. NECK: Supple without masses, nodes, or bruits. CHEST: Clear to auscultation. No rales, rhonchi, wheezes are heard. No cough is noted. HEART: Reveals a regular rate and rhythm without murmurs, gallops, or rubs. ABDOMEN: Soft, nontender without organomegaly. Normal bowel sounds are noted in all 4 quadrants. No rebound or guarding is noted. : Deferred. EXTREMITIES: Reveal no clubbing, cyanosis, but still 1+ edema is noted in the lower extremities. NEUROLOGIC: The patient is oriented x4. ASSESSMENT: 1. Diabetes type 2, which is somewhat improving. 2. Hypertension. 3. Atrial fibrillation/flutter, status post ablation, complication of hemorrhagic pericarditis. 4. Pericardial effusion with tamponade, requiring pericardial window. 5. Generalized weakness. 6. Diastolic congestive heart failure. 7. Benign prostatic hypertrophy. 8. Pancreatic mass, asymptomatic. 9. History of lung cancer, status post lobectomy. PLAN: 1. Continue PT and OT. 2. Continue to monitor the patient's diabetes with Accu-Cheks before meals and at bedtime. 3. Continue just insulin as needed. 4. Monitor the patient's heart rate for atrial fibrillation and flutter with RVR. 5. Monitor the patient's respiratory status. 6. Continue to monitor the patient's weight. Job ID: [id number]
[2018-11-25] MEDS: Zolpidem Tartrate 5 MG TAB PO PRN (20:42)
[2018-11-25] MEDS: Benzonatate 100 MG CAP PO PRN (20:47)
[2018-11-25] MEDS: Lantus 1000 UNITS/10 ML VIAL SC SCH (20:48)
[2018-11-26] MEDS: Polyethylene Glycol 3350 17 GM Packet PO SCH (08:23)
[2018-11-26] MEDS: Tamsulosin HCl 0.4 MG CAP PO SCH (08:24)
[2018-11-26] MEDS: Furosemide 20 MG TAB PO SCH (08:24)
[2018-11-26] MEDS: Aspirin Chewable 81 MG TAB PO SCH (08:24)
[2018-11-26] MEDS: Sucralfate 1 GM TAB PO SCH ×4 (08:24→20:40)
[2018-11-26] MEDS: Potassium Chloride 20 MEQ TAB PO SCH (08:24)
[2018-11-26] MEDS: Apixaban 2.5 MG TAB PO SCH ×2 (08:24→20:40)
[2018-11-26] MEDS: Fenofibrate Nanocrystallized 145 MG TAB PO SCH (08:24)
[2018-11-26] MEDS: Loratadine 10 MG TAB PO SCH (08:24)
[2018-11-26] MEDS: Atorvastatin Calcium 10 MG TAB PO SCH (08:24)
[2018-11-26] MEDS: Carvedilol 6.25 MG TAB PO SCH ×2 (08:26→20:39)
[2018-11-26] MEDS: Saccharomyces boulardii 250 MG CAP PO SCH (08:27)
[2018-11-26] MEDS: Alogliptin 25 MG TAB PO SCH (08:28)
--- NOTE | 2018-11-26 18:18 | PRG ---
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 He had atrial fib/flutter, pericardial effusion with tamponade that required a cardiac window, diabetes type 2, hypertension, hyponatremia secondary to SIADH, history of lung cancer, pancreatic mass which is being followed closely, hyperlipidemia; and generalized weakness. The patient was admitted to [facility] initially and then stabilized and transferred to [facility] for continued PT and OT. The patient states he is doing well and getting stronger everyday, he is walking. He is supposed to walk twice tomorrow morning, twice tomorrow afternoon, and also on Thursday. He is continuing to get stronger everyday. OBJECTIVE: VITAL SIGNS: Today reveal blood pressure 125/65, pulse 83, respirations 20, O2 saturation of 97% on room air, T-max 98.2. GENERAL: This is a well-developed, well-nourished, very pleasant white male, in no apparent distress at this time. HEENT: Reveals normocephalic and nontraumatic cranium. Pupils are equal, round, and reactive. Extraocular movements are intact. Nose and throat are slightly dry. NECK: Supple without masses, nodes, or bruits. CHEST: Clear to auscultation. No rales, rhonchi, or wheezes are heard. No cough is heard. HEART: Reveals a regular rate and rhythm without murmurs, gallops, or rubs. ABDOMEN: Soft and nontender without organomegaly. Normal bowel sounds are noted in all 4 quadrants. No rebound or guarding is noted. : Deferred. EXTREMITIES: Reveal no clubbing, cyanosis, or edema today. NEUROLOGIC: The patient is oriented x4. ASSESSMENT: 1. Diabetes type 2, which is much improved. All of his sugars were less than 200 today. 2. Hypertension. 3. Atrial fibrillation/flutter, status post ablation, complicated with hemorrhagic pericarditis. 4. Pericardial effusion with tamponade requiring pericardial window. 5. Generalized weakness. 6. Diastolic congestive heart failure. 7. Benign prostatic hypertrophy. 8. Pancreatic mass, asymptomatic. 9. History of lung cancer, status post lobectomy. PLAN: 1. Continue PT and OT. 2. Continue to monitor the patient's diabetes with Accu-Cheks before meals and at bedtime. 3. Continue insulin present dosage range. 4. Continue to monitor the patient's heart rate for atrial fibrillation and flutter with RVR. 5. Monitor the patient's respiratory status. 6. Continue to monitor the patient's weight. Job ID: [id number]
[2018-11-26] MEDS: Lantus 1000 UNITS/10 ML VIAL SC SCH (20:39)
[2018-11-26] MEDS: Zolpidem Tartrate 5 MG TAB PO PRN (20:39)
[2018-11-26] MEDS: Benzonatate 100 MG CAP PO PRN (20:40)
--- NOTE | 2018-11-27 09:08 | PRG ---
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 He had multiple medical problems and had to be admitted to [facility]. He had atrial flutter/fib. He had a pericardial effusion, which developed tamponade and had to have a cardiac window. He also has chronic disease of diabetes type 2, hypertension, hyponatremia secondary to SIADH, history of lung cancer, pancreatic mass, which is being followed closely and hyperlipidemia with generalized weakness. The patient was transferred to [facility] for continued PT and OT. He is doing very well. Most likely will be going home on Thursday. This weekend, they will walk him twice in the morning and twice in the afternoon. SUBJECTIVE: The patient states he is doing well and he is ready for breakfast and has already been up and has morning constitution. OBJECTIVE: VITAL SIGNS: This morning reveal blood pressure 133/67, pulse 81 to 86, respirations 20, O2 saturation 97% to 99% on room air, and T-max 97.8. GENERAL: This is a well-developed and well-nourished, very pleasant 83-year-old white male, in no apparent distress at this time. HEENT: Normocephalic and nontraumatic cranium. Pupils are equal, round, and reactive. Extraocular movements are intact. Nose and throat are moist. NECK: Supple without masses, nodes, or bruits. CHEST: Clear to auscultation. No rales, rhonchi, or wheezes are heard. No cough is noted today. HEART: Reveals a regular rate and rhythm without murmurs, gallops, or rubs. ABDOMEN: Soft and nontender without organomegaly. Normal bowel sounds noted in all 4 quadrants. No rebound or guarding is noted. : Deferred. EXTREMITIES: Reveal no clubbing or cyanosis with trace edema. The patient is oriented x4. ASSESSMENT: 1. Diabetes type 2, which is much improved, all the sugars were less than 200 over the last 24 hours. 2. Hypertension. 3. Atrial fibrillation/flutter status post ablation complicated with hemorrhagic pericarditis. 4. Pericardial effusion with tamponade requiring pericardial window. 5. Generalized weakness. 6. Diastolic congestive heart failure. 7. Benign prostatic hyperplasia. 8. Pancreatic mass, asymptomatic, being followed closely. 9. History of lung cancer, status post lobectomy. PLAN: 1. Continue physical therapy and occupational therapy over the weekend. Nurse will be walking him twice in the morning, twice in the afternoon. 2. Continue to monitor the patient's diabetes with Accu-Cheks before meals and at bedtime. 3. Continue present insulin dosage. 4. Monitor the patient's heart rate for atrial fibrillation and flutter with rapid ventricular response. 5. Monitor the patient's respiratory status. 6. Continue to monitor the patient's weight. Job ID: [id number]
[2018-11-27] MEDS: Polyethylene Glycol 3350 17 GM Packet PO SCH (09:22)
[2018-11-27] MEDS: Furosemide 20 MG TAB PO SCH (09:22)
[2018-11-27] MEDS: Alogliptin 25 MG TAB PO SCH (09:22)
[2018-11-27] MEDS: Sucralfate 1 GM TAB PO SCH ×4 (09:22→20:47)
[2018-11-27] MEDS: Carvedilol 6.25 MG TAB PO SCH ×2 (09:22→20:47)
[2018-11-27] MEDS: Apixaban 2.5 MG TAB PO SCH ×2 (09:22→20:48)
[2018-11-27] MEDS: Fenofibrate Nanocrystallized 145 MG TAB PO SCH (09:22)
[2018-11-27] MEDS: Atorvastatin Calcium 10 MG TAB PO SCH (09:22)
[2018-11-27] MEDS: Saccharomyces boulardii 250 MG CAP PO SCH (09:23)
[2018-11-27] MEDS: Tamsulosin HCl 0.4 MG CAP PO SCH (09:23)
[2018-11-27] MEDS: Loratadine 10 MG TAB PO SCH (09:23)
[2018-11-27] MEDS: Aspirin Chewable 81 MG TAB PO SCH (09:23)
[2018-11-27] MEDS: Potassium Chloride 20 MEQ TAB PO SCH (09:28)
[2018-11-27] MEDS: HumaLOG 300 UNITS/3 ML VIAL SC PRN (12:18)
[2018-11-27] MEDS: Boudreaux's Butt Paste 60 GM TUBE TOP PRN (14:21)
[2018-11-27] MEDS: Lantus 1000 UNITS/10 ML VIAL SC SCH (20:46)
[2018-11-27] MEDS: Benzonatate 100 MG CAP PO PRN (20:47)
[2018-11-27] MEDS: Zolpidem Tartrate 5 MG TAB PO PRN (20:48)
[2018-11-28] MEDS ORDERED: Lantus 1000 UNITS/10 ML VIAL SC SCH (06:47)
[2018-11-28] MEDS: Aspirin Chewable 81 MG TAB PO SCH (09:06)
[2018-11-28] MEDS: Atorvastatin Calcium 10 MG TAB PO SCH (09:06)
[2018-11-28] MEDS: Loratadine 10 MG TAB PO SCH (09:06)
[2018-11-28] MEDS: Sucralfate 1 GM TAB PO SCH ×4 (09:06→21:00)
[2018-11-28] MEDS: Fenofibrate Nanocrystallized 145 MG TAB PO SCH (09:06)
[2018-11-28] MEDS: Tamsulosin HCl 0.4 MG CAP PO SCH (09:06)
[2018-11-28] MEDS: Furosemide 20 MG TAB PO SCH (09:06)
[2018-11-28] MEDS: Carvedilol 6.25 MG TAB PO SCH ×2 (09:06→21:01)
[2018-11-28] MEDS: Apixaban 2.5 MG TAB PO SCH ×2 (09:06→21:01)
[2018-11-28] MEDS: Polyethylene Glycol 3350 17 GM Packet PO SCH (09:06)
[2018-11-28] MEDS: Potassium Chloride 20 MEQ TAB PO SCH (09:06)
[2018-11-28] MEDS: Alogliptin 25 MG TAB PO SCH (09:06)
[2018-11-28] MEDS: Saccharomyces boulardii 250 MG CAP PO SCH (09:07)
[2018-11-28] MEDS: Boudreaux's Butt Paste 60 GM TUBE TOP PRN (09:12)
--- NOTE | 2018-11-28 10:05 | PRG ---
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 He was admitted to [facility] with atrial fib/flutter with a pericardial effusion. He developed tamponade and had to have a cardiac window done. He has chronic diseases of diabetes type 2, hypertension, hyponatremia secondary to SIADH, history of lung cancer, pancreatic mass, which is being followed closely, hyperlipidemia with generalized weakness. Transferred to [facility] for PT and OT to increase his strength and stamina. He has been doing well this week and is being walked twice in the morning and twice in the afternoon. He is most likely going to be discharged tomorrow afternoon. SUBJECTIVE: The patient states he had a good day yesterday, and he walked a lot until he is pretty tired. His strength and stamina continued to slightly increase every day. OBJECTIVE: VITAL SIGNS: Today reveals blood pressure 125/57, pulse 76, respirations 19, O2 saturation 99% on room air, T-max 98.2. PHYSICAL EXAMINATION: GENERAL: This is a well-developed, well-nourished, very pleasant 83-year-old white male, in no apparent distress at this time. HEENT: Reveals normocephalic and nontraumatic cranium. Pupils are equally round and reactive. Extraocular movements are intact. Nose and throat are moist. NECK: Supple without masses, nodes, or bruits. CHEST: Clear to auscultation. No rales, rhonchi, or wheezes are heard. No cough is noted today. HEART: Reveals a regular rate and rhythm without murmurs, gallops, or rubs. ABDOMEN: Soft, nontender without organomegaly. Normal bowel sounds are noted in all 4 quadrants. No rebound or guarding is noted. : Deferred. EXTREMITIES: Reveal no clubbing or cyanosis with trace edema. The patient is oriented x4. ASSESSMENT: 1. The patient was hypoglycemic this morning at 59. We did decrease his Lantus from 44 units at bedtime to 40 units at bedtime. The patient states he is usually on 20 to 30 units daily, but he has been eating much better since he has been here. 2. Diabetes type 2. 3. Hypertension. 4. Atrial fibrillation status post ablation complicated by hemorrhagic pericarditis. 5. Pericardial effusion with tamponade requiring pericardial window. 6. Generalized weakness. 7. Diastolic congestive heart failure. 8. Benign prostatic hypertrophy. 9. Pancreatic mass, asymptomatic. Being followed closely by Dr. Fuller. 10. History of lung cancer, status post lobectomy. Followed by Dr. Fuller. PLAN: 1. Continue to monitor the patient's diabetes with Accu-Cheks before meals and at bedtime. 2. Continue with decrease Lantus down to 40 units at bedtime. 3. Monitor the patient's heart rate for AFib and flutter with RVR. 4. Monitor the patient's respiratory status. 5. Continue to monitor the patient's weight. 6. Continue physical therapy and occupational therapy. 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 We will walk him twice this morning, twice this afternoon. He will have return from physical therapy tomorrow. 8. Dr[facility] Job ID: [id number]
[2018-11-28] MEDS: Benzonatate 100 MG CAP PO PRN (21:01)
[2018-11-28] MEDS: Zolpidem Tartrate 5 MG TAB PO PRN (21:01)
[2018-11-29 07:33] VITALS: TEMP 98.1
[2018-11-29] MEDS: Potassium Chloride 20 MEQ TAB PO SCH (08:22)
[2018-11-29] MEDS: Tamsulosin HCl 0.4 MG CAP PO SCH (08:22)
[2018-11-29] MEDS: Loratadine 10 MG TAB PO SCH (08:23)
[2018-11-29] MEDS: Fenofibrate Nanocrystallized 145 MG TAB PO SCH (08:23)
[2018-11-29] MEDS: Aspirin Chewable 81 MG TAB PO SCH (08:23)
[2018-11-29] MEDS: Sucralfate 1 GM TAB PO SCH ×3 (08:23→17:07)
[2018-11-29] MEDS: Apixaban 2.5 MG TAB PO SCH (08:23)
[2018-11-29] MEDS: Carvedilol 6.25 MG TAB PO SCH (08:23)
[2018-11-29] MEDS: Atorvastatin Calcium 10 MG TAB PO SCH (08:23)
[2018-11-29] MEDS: Alogliptin 25 MG TAB PO SCH (08:23)
[2018-11-29] MEDS: Furosemide 20 MG TAB PO SCH (08:23)
[2018-11-29] MEDS: Saccharomyces boulardii 250 MG CAP PO SCH (08:24)
[2018-11-29] MEDS: Polyethylene Glycol 3350 17 GM Packet PO SCH (08:26)
[2018-11-29] MEDS: HumaLOG 300 UNITS/3 ML VIAL SC PRN ×2 (12:26→17:07)
[2018-11-29 13:09] VITALS: BP 134/69
== END 2018-11-29 18:55 | disposition home health service (06) | DRG 315 ==
LOC: NAV ACUTE 17:15
PROVIDERS: ADMIT Internal Medicine; ATTEND Internal Medicine
DX: I31.3 Pericardial effusion (noninflammatory) (principal); I50.32 Chronic diastolic (congestive) heart failure; I13.0 Hypertensive heart and chronic kidney disease with heart failure and stage 1 through stage 4 chronic kidney disease, or unspecified chronic kidney disease; E22.2 Syndrome of inappropriate secretion of antidiuretic hormone; K86.9 Disease of pancreas, unspecified; N40.0 Benign prostatic hyperplasia without lower urinary tract symptoms; E78.5 Hyperlipidemia, unspecified; E11.649 Type 2 diabetes mellitus with hypoglycemia without coma; E11.22 Type 2 diabetes mellitus with diabetic chronic kidney disease; N18.3 Chronic kidney disease, stage 3 (moderate); I48.0 Paroxysmal atrial fibrillation; Z90.2 Acquired absence of lung [part of]; Z85.118 Personal history of other malignant neoplasm of bronchus and lung
CPT/HCPCS: 36415; 36416; 71046; 80048; 80053; 83880; 85007; 85025; 85027; J1815